=== PATIENT | male | born 2000 | race Asian ===

== ENCOUNTER 2023-09-04 00:20 | Emergency (ER) | payer OTHER ==
[2023-09-04 00:38] VITALS: BP 141/80; PULSE 63; RESP 18; TEMP 97.7; BMI 31.9
[2023-09-04] MEDS ORDERED: KETOROLAC TROMETHAMINE 30 MG/1 ML VIAL ONE (00:56)
[2023-09-04] MEDS: KETOROLAC TROMETHAMINE 30 MG/1 ML VIAL IM ONE (00:58)
== END 2023-09-04 01:54 | disposition home or self-care (01) ==
LOC: JER 00:20
PROC: 3E0133Z Introduction of Anti-inflammatory into Subcutaneous Tissue, Percutaneous Approach (ICD-10-PCS; principal; 2023-09-04)
DX: K08.89 Other specified disorders of teeth and supporting structures (principal)
CPT/HCPCS: 99284-25